=== PATIENT | male | born 1935 | race Caucasian/White ===

== ENCOUNTER → 2023-06-21 | Outpatient (CLI) | payer OTHER ==
[~2023-06-21] MED LIST: IOHEXOL 350 MG/ML 100ML INFUS..BTL IV ONE
== END | disposition home or self-care (01) ==
LOC: RAH 08:57
PROVIDERS: ATTEND Internal Medicine Cardiovascular Disease
DX: K57.30 Diverticulosis of large intestine without perforation or abscess without bleeding (principal); I71.40 Abdominal aortic aneurysm, without rupture, unspecified; I70.0 Atherosclerosis of aorta
CPT/HCPCS: 74174; 71275; Q9967

== ENCOUNTER → 2024-02-20 | Outpatient (CLI) | payer OTHER ==
[~2024-02-20] MED LIST changes: +CLOP75TA32 PO; +ENAL-91 PO; -IOHEXOL 350 MG/ML 100ML INFUS..BTL IV ONE; +IOHEXOL-350 75 ML VIAL IV ONE; +METO-409 PO; +MULT-1289 PO; +ROSU40TA88 PO; +TAMS-1 PO; +VITAMIN B COMPLEX PO
== END | disposition home or self-care (01) ==
LOC: RAH 08:36
PROVIDERS: ATTEND Internal Medicine Cardiovascular Disease
DX: I65.23 Occlusion and stenosis of bilateral carotid arteries (principal); M47.812 Spondylosis without myelopathy or radiculopathy, cervical region
CPT/HCPCS: 70498; Q9967

== ENCOUNTER 2024-03-18 07:10 | Day surgery (SDC) | payer OTHER ==
[2024-03-15 10:18] LABS: BASOPHILS # (AUTO) 0.06 K/uL (0.00-0.20); BASOPHILS % (AUTO) 0.7 % (0.0-5.0); EOSINOPHILS % (AUTO) 2.3 % (0.0-8.0); HEMATOCRIT 43.5 % (42-54); IMMATURE GRANULOCYTE ABSOLUTE 0.05 K/uL (0-1); LYMPHOCYTES # (AUTO) 1.5 K/uL (1.0-4.8); LYMPHOCYTES % (AUTO) 17.2 % (21.0-51.0); MEAN CORPUSCULAR HEMOGLOBIN 32.9 pg (27.0-33.0); MEAN CORPUSCULAR VOLUME 96.7 fL (79-99); MONOCYTES # (AUTO) 0.6 K/uL (0.1-1.0); MONOCYTES % (AUTO) 6.5 % (3.0-13.0); NEUTROPHILS # (AUTO) 6.4 K/uL (1.8-7.7); NEUTROPHILS % (AUTO) 72.7 % (40.0-77.0); PLATELET COUNT (AUTO) 141 K/uL (130-400); RED CELL DISTRIBUTION WIDTH 13.6 % (11.0-15.5); WHITE BLOOD COUNT (AUTO) 8.8 K/uL (4.8-10.8)
[2024-03-15 10:24] LABS: CREATININE 0.9 mg/dL (0.5-1.3); POTASSIUM 4.3 mmol/L (3.5-5.1)
[2024-03-15 10:27] LABS: INR 0.99 (0.85-1.15); PROTHROMBIN TIME 10.7 SEC (9.6-11.6)
[2024-03-15 10:28] VITALS: BP 178/94; PULSE 86; RESP 18; TEMP 97.9
[2024-03-15 10:28] LABS: PARTIAL THROMBOPLASTIN TIME 28.6 SEC (26.3-35.5)
[2024-03-15 10:54] LABS: B-TYPE NATRIURETIC PEPTIDE 102 pg/mL (0-100)
[2024-03-15 11:04] LABS: APPEARANCE,URINE CLEAR (CLEAR); BILIRUBIN,URINE NEGATIVE (NEGATIVE); COLOR,URINE YELLOW (YELLOW); GLUCOSE, URINE (UA) NEGATIVE (NEGATIVE); KETONES,URINE NEGATIVE (NEGATIVE); LEUKOCYTE ESTERASE ,URINE NEGATIVE Leu/uL (NEGATIVE); NITRATE,URINE NEGATIVE (NEGATIVE); OCCULT BLOOD,URINE NEGATIVE (NEGATIVE); PROTEIN,URINE NEGATIVE (NEGATIVE); UROBILINOGEN,URINE 0.2 mg/dL (0.2-1.0)
[2024-03-15 11:05] LABS: ADD UA MICROSCOPIC NO
--- NOTE | 2024-03-15 12:04 | HMCIMG ---
CHEST 1VW REASON: PRE OP COMPARISON: None. FINDINGS: Single view of the chest was obtained. Lungs are clear. Heart size is normal. There is no pulmonary vascular congestion. Mediastinum and bony thorax appear unremarkable. There is been previous median sternotomy. 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 IMPRESSION: 1. No acute process seen in the chest.
--- NOTE | 2024-03-15 21:43 | EKG ---
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
[~2024-03-18] VITALS: Ht 175.3 cm; Wt 73.9 kg
[2024-03-18] VITALS (9 sets, daily range): BP systolic 113–142; BP diastolic 64–79; PULSE 68–82; RESP 14–16; TEMP 97–98.1
[~2024-03-18 07:10] MED LIST changes: +ASPI-1197 PO; +ESCI5TAB16 PO; -IOHEXOL-350 75 ML VIAL IV ONE
[2024-03-18] MEDS: 0.9%NACL 1000ML 1,000 ML IV ONE (09:33)
[2024-03-18] MEDS ORDERED: IOHEXOL 350 MG/ML 100ML INFUS..BTL IV ONE (10:33)
[2024-03-18] MEDS ORDERED: LIDOCAINE HCL 400MG/20ML VIAL ONE (10:33)
[2024-03-18] MEDS ORDERED: HEParin-NS 1,000 UNIT/500 ML 1,000 ML IV ONE (10:33)
[2024-03-18] MEDS ORDERED: NITROGLYCERIN 50MG VIAL ONE (10:34)
[2024-03-18] MEDS ORDERED: HEParin 10,000 UNIT/10ML (1,000 UNIT/ML) VIAL ONE (10:35)
[2024-03-18] MEDS ORDERED: MEPERIDINE-PF 25 MG/ML SYG ONE ×2 (10:46→12:17)
[2024-03-18] MEDS ORDERED: MIDAZOLAM HCL 1 MG/ML 2ML VIAL ONE ×2 (10:46→12:17)
[2024-03-18] MEDS ORDERED: HEParin-NS 1,000 UNIT/500 ML 500 ML IV ONE ×2 (11:08→11:48)
[2024-03-18] MEDS ORDERED: IOHEXOL-350 50ML VIAL IV ONE (12:00)
[2024-03-18] MEDS ORDERED: acetaMINOPHEN WITH coDEINE 1 TAB TAB PO PRN ×2 (14:00)
[2024-03-18] MEDS ORDERED: ondanSETRON 4MG INJ IVP PRN (14:00)
[2024-03-18] MEDS ORDERED: 0.9%NACL 1000ML 1,000 ML IV SCH (14:00)
--- NOTE | 2024-03-18 14:39 | CCATH ---
PROCEDURES: 1. Right and left heart catheterization. 2. Selective right and left coronary artery angiography. 3. Selective right and left carotid artery angiography. 4. Placement of a pigtail catheter in the aortic root. 5. Aortic root angiogram. 6. Right coronary artery shockwave lithotripsy and right coronary artery balloon angioplasty. 7. Right coronary artery stent placement in the mid RCA and the ostial to proximal RCA. INDICATIONS: 1. Severe carotid artery stenosis by noninvasive studies. 2. Severe coronary artery disease. 3. Abdominal aortic aneurysm. COMPLICATIONS: None. TOTAL CONTRAST: Approximately 210 mL. DESCRIPTION OF PROCEDURE: The patient was taken to the cardiac catheterization lab after appropriate operative consents were signed. He was prepped and draped in the usual fashion. After conscious sedation was administered, the right common femoral artery and vein regions were infiltrated with 2% Xylocaine without epinephrine. Ultrasound guidance was utilized to access the right common femoral artery and right common femoral vein. A 7-[place] sheath was advanced in the right common femoral vein in retrograde fashion with modified Seldinger technique. A 6 x 45 sheath was advanced in the right common femoral artery in retrograde fashion with modified Seldinger technique. Utilizing a multipurpose catheter, we were able to advance the catheter into the aortic root. This was engaged in the ostium of the left main. Imaging was obtained in multiplane. The left main was large vessel that was noted to have no significant stenotic lesions. It trifurcated into LAD, intermediate and circumflex. Circumflex coronary artery was a small vessel that gave rise to small obtuse marginal branch and was free of disease. The intermediate was a moderately-sized vessel that was bifurcating and was free of disease. LAD was a moderately sized vessel that gave rise to several diagonals and septal perforators and was free of significant stenosis. Attempts at cannulating the right coronary artery with a right coronary catheter were not successful. The patient was noted to have an aberrantly arising right coronary artery with a superior takeoff. We utilized an AL1 diagnostic catheter to be able to cannulate the right coronary artery, which was noted to be heavily calcified. It was a large vessel that had a 90% ostial and proximal stenotic lesion and a 95% mid RCA lesion that was heavily calcified as well. This was at the level of the acute marginal branch. The PDA and PLVB were patent. The PLVB was branching and without significant stenosis. At this point, a multipurpose one left catheter was selected. Utilizing multiple wires, we were able to advance the catheter into the left ventricular cavity. This was exchanged with a pigtail 5-[place] sheath. The catheter was placed in left ventricular cavity. [place] was introduced from the right common femoral vein and positioned into the right atrium, right ventricle, PA and pulmonary capillary wedge pressure positions. The pressures were recorded and noted. Simultaneous measurement of the left ventricular end-diastolic pressure and the PA as well as the pulmonary capillary wedge pressure showed no significant gradient. Simultaneous measurements between the LV and the aorta revealed a ngma-st-roarkipi degree of bioprosthetic aortic valve stenosis with a 24 mmHg transaortic valvular gradient and valve area of 1.36 cm2. At this point, an FR4 6-[place] catheter was selected and engaged in the right common carotid artery. This was imaged in multiplane with digital acquisition identifying a critical distal right common carotid artery stenosis before the bifurcation of internal carotid and external carotid. The external carotid had a 90% ostial lesion. The intracerebral circulation was normal. The catheter was then withdrawn and engaged in the ostium of the left common carotid artery, which was imaged in multiplane identifying a calcified mid right common carotid artery left stenosis at 40%. The internal and external artery bifurcation were heavily calcified but did not appear to have a significant luminal stenotic lesion. The intracerebral circulation was normal. Given the patient's status and the degree of stenosis in the right coronary artery, we elected to proceed with angioplasty and stenting of the right coronary artery. We utilized a left coronary AL2 guide catheter, which was electively placed selectively engaging the ostium of the RCA. A 0.014 wire was advanced and positioned into the distal RCA circulation. Utilizing a GuideLiner, we were able to advance a 2.5 mm balloon, which was inflated to 20 atmospheres in the mid RCA and in the ostium and proximal RCA. This was followed by placement of a GuideLiner into the mid RCA. We were then able to proceed with placement of a 4.0 shockwave lithotripsy balloon to the mid RCA, which was inflated and a total of 30 delivery sessions were utilized. We then utilized the same balloon to predilate the ostial and proximal RCA. We then advanced a 4.0 x 34 [place] stent, which was positioned in the mid RCA and deployed to nominal pressures and postdilated with a 4.0 NC balloon to 14 atmospheres and then to 18 atmospheres at 4.12 mm size. The proximal RCA was then managed with stent placement with a 4.0 x 30, which was deployed to cover the ostium. This was inflated to nominal pressures and postdilated with a 4.0 NC balloon to 20 atmospheres at 4.24 mm size with good final angiographic results. At this point, [place] was withdrawn. The catheters were removed and Perclose was utilized with good hemostasis. The patient tolerated the procedure well and left the cardiac catheterization lab in stable condition. FINAL IMPRESSION: 1. Severe carotid artery stenosis with right carotid artery of 80%. 2. Severe right coronary artery stenosis at the ostium and mid. 3. Wfoi-tq-[id number] aortic stenosis with bioprosthetic valve. 4. Dilated aortic root. 5. Successful balloon angioplasty and stent placement in the mid RCA after shockwave lithotripsy utilizing a 4.0 x 34 [place] stent, postdilated with a 4 mm NC balloon and successful balloon angioplasty and stent placement of the ostium and proximal RCA with a 4.0 x 30 [place] balloon postdilated with a 4 mm NC balloon to 20 atmospheres with good final angiographic results. PLAN: Continue medical management and consider right TCAR. TID: [id number] RECEIPT: [id number]
== END 2024-03-18 18:50 | disposition home or self-care (01) ==
LOC: DAH 07:10
PROVIDERS: ATTEND Internal Medicine Cardiovascular Disease
DX: I25.118 Atherosclerotic heart disease of native coronary artery with other forms of angina pectoris (principal); T82.857A Stenosis of other cardiac prosthetic devices, implants and grafts, initial encounter; I49.5 Sick sinus syndrome; I65.21 Occlusion and stenosis of right carotid artery; F17.210 Nicotine dependence, cigarettes, uncomplicated; I35.0 Nonrheumatic aortic (valve) stenosis; Z95.5 Presence of coronary angioplasty implant and graft; Y82.8 Other medical devices associated with adverse incidents; Z79.899 Other long term (current) drug therapy
CPT/HCPCS: 80048; 83880; 85025; 85610; 85730; 81003; 36415 ×2; 71045; 93005; 36223; 92972; 93567; 85347 ×2; 82948; 93460; C9600; C1769 ×6; C1887 ×3; C1894 ×3; C1725 ×2; C1874 ×2; C1760; C1893; C1761; J3490 ×2; J7030; J1644 ×4; J2250 ×2; J2175 ×2; Q9967 ×2; A4215; A4222; A4221; A4663; A4216; A4606; Q9965 ×2; A4223 ×3; 96360; 96361; 99156; 99157